=== PATIENT | female | born 1970 | race Caucasian/White ===

== ENCOUNTER 2021-02-16 08:04 | Outpatient (RCR) | payer OTHER, SELFPAY | END 2021-03-16 15:00 | disposition home or self-care (01) | LOC: HO.WCC 08:04 | PROVIDERS: PCP Internal Medicine; Visit Provider Surgery | DX: L97.528 Non-pressure chronic ulcer of other part of left foot with other specified severity (principal); G62.1 Alcoholic polyneuropathy; F17.210 Nicotine dependence, cigarettes, uncomplicated; J44.9 Chronic obstructive pulmonary disease, unspecified; Z71.6 Tobacco abuse counseling | CPT/HCPCS: 99212; 99213 ==